=== PATIENT | female | born 1985 | race Caucasian/White ===

== ENCOUNTER 2017-01-20 00:43 | Emergency (ER) | payer SELFPAY ==
[2017-01-20] MEDS ORDERED: HYDROCODONE/APAP 5/325MG TABLET PO ONE ×2 (00:50→01:47)
--- NOTE | 2017-01-20 00:54 | Emergency Department Record ---
History of Present Illness - General Chief complaint: Extremity Problem Stated complaint: RIGHT HAND INJURY Time Seen by Provider: 01/20/17 00:47 Source: Patient, Family Mode of Arrival: Ambulatory Limitations: No limitations - History of Present Illness Initial comments: 31 yo female present with right hand pain and swelling. She punched a wall about 24 hours ago. She has pain and swelling over the index and middle finger knuckles. The skin is intact. No history or right hand fractures in the past. She is right handed. She has been healthy otherwise recently. No other injuries. MD Complaint: Extremity pain, Extremity swelling, Joint pain -: Hour(s) (24) Location: Right -: Yes Arthralgia Radiation: Distal Quality: Aching Consistency: Constant Improves with: Immobilization Worsens with: Exertion, Palpation, Weight bearing Associated Symptoms: Denies other symptoms - Related Data Home Medications Medication Instructions Recorded Confirmed Last Taken Fluoxetine HCl [Fluoxetine HCl] 40 mg PO DAILY 01/20/17 01/20/17 Unknown Previous Rx's Medication Instructions Recorded Hydrocodone/Acetaminophen [[place] 1 each PO Q6H #15 tablet 01/20/17 5-325 Tablet] Allergies Allergy/AdvReac Type Severity Reaction Status Date / Time No Known Drug Allergies Allergy Verified 01/20/17 00:52 Review of Systems Constitutional: Denies: Chills, Fever, Malaise, Weakness Eyes: Denies: Eye discharge, Eye pain, Photophobia, Vision change ENT: Denies: Congestion, Throat pain Respiratory: Denies: Cough, Dyspnea, Hemoptysis Cardiovascular: Denies: Chest pain, Palpitations, Syncope Endocrine: Denies: Fatigue Gastrointestinal: Denies: Abdominal pain, Diarrhea, Nausea, Vomiting Musculoskeletal: Reports: As per HPI, Arthralgia, Joint swelling. Denies: Myalgia Skin: Reports: As per HPI, Bruising, Change in color Neurological: Denies: Abnormal gait, Headache, Numbness, Tingling, Tremors, Weakness Psychiatric: Denies: Anxiety Hematological/Lymphatic: Denies: Blood Clots, Easy bleeding, Easy bruising, Swollen glands Physical Exam - General General Appearance: Alert, Oriented x3, Cooperative, No acute distress Limitations: No limitations - Head Head exam: Atraumatic, Normocephalic, Normal inspection Head exam detail: negative: Abrasion, Contusion, Hematoma, Laceration - Eye Eye exam: Normal appearance. negative: Scleral icterus - ENT ENT exam: Normal exam, Mucous membranes moist Ear exam: Normal external inspection Nasal Exam: Normal inspection Mouth exam: Normal external inspection - Neck Neck exam: Normal inspection - Cardiovascular Cardiovascular Exam: Regular rate, Normal rhythm, Normal heart sounds Peripheral Pulses: 2+: Radial (R) - Rectal Rectal exam: Deferred - exam: Deferred - Extremities Extremities exam: Joint swelling, Tenderness. negative: Normal inspection, Full ROM Image of Hand: 1 - swelling, bruising, tender, intact skin - Back Back exam: Denies: CVA tenderness (R), CVA tenderness (L) - Neurological Neurological exam: Alert, Oriented X3. negative: Altered - Psychiatric Psychiatric exam: Normal affect, Normal mood - Skin Skin exam: Other (bruising to the hand as noted above) Disposition Disposition: Discharge Clinical Impression: First metacarpal bone fracture Qualifiers: Encounter type: initial encounter Fracture type: closed Metacarpal location: unspecified portion of metacarpal Fracture alignment: nondisplaced Laterality: right Qualified Code(s): S62.201A - Unspecified fracture of first metacarpal bone, right hand, initial encounter for closed fracture Disposition: Home, Self-Care Condition: (1) Good Instructions: Hand Fracture (ED) Additional Instructions: Call your family doctor for follow up and possible hand surgeon referral for your hand fracture Return if you have any new symptoms or uncontrolled pain Elevate to minimize swelling Prescriptions: Hydrocodone/Acetaminophen [[place] 5-325 Tablet] 1 each PO Q6H #15 tablet Referrals: GENE FOSS M.D. [MEDICAL DOCTOR] - Forms: Patient Portal Access Time of Disposition: 01:50 Quality - Quality Measures Quality Measures: N/A - Blood Pressure Screening Does Patient Have Any of the Following: No Blood Pressure Classification: Pre-Hypertensive BP Reading Systolic Measurement: 127 Diastolic Measurement: 82 Screening for High Blood Pressure: < Pre-Hypertensive BP, F/U Documented > [ [id number]] Pre-Hypertensive Follow-up Interventions: Referral to alternative/primary care provider.
--- NOTE | 2017-01-21 13:51 | RADIOLOGY REPORT ---
EXAM: HAND, RIGHT 3 VIEWS HISTORY: PUNCHED A WALL. PAIN AT THE SECOND AND THIRD METACARPALS. SOFT TISSUE SWELLING. TECHNIQUE: Three views of the right hand were obtained. COMPARISON: None. FINDINGS: There is a mildly comminuted oblique fracture within the distal shaft and neck of the second metacarpal. There is mild apex dorsal angulation. The remaining osseous articular structures appear intact. There is the suggestion for an old healed fracture at the base of the fifth proximal phalanx. IMPRESSION: MILDLY COMMINUTED OBLIQUE FRACTURE WITHIN THE DISTAL SHAFT AND NECK OF THE SECOND METACARPAL WITH MILD APEX DORSAL ANGULATION. JOB NUMBER: [id number] MTDD
== END 2017-01-20 02:05 | disposition home or self-care (01) ==
LOC: ER 00:43
DX: S62.320A Displaced fracture of shaft of second metacarpal bone, right hand, initial encounter for closed fracture (principal); W22.8XXA Striking against or struck by other objects, initial encounter
CPT/HCPCS: 99283